=== PATIENT | male | born 1945 | race Caucasian/White ===

== ENCOUNTER 2024-07-08 13:29 | Emergency (ER) | payer MEDICARE, SELFPAY ==
[2024-07-08 13:31] VITALS: BP 131/87
[2024-07-08 15:50] LABS: % Basophils 0.6 % (0-2); % Eosinophils 1.5 % (0-6); % Immature Granulocytes 0.4 % (0-0.5); % Lymphocytes 12.2 % (20.5-51.1); % Monocytes 5.5 % (1.7-9.3); % Neutrophils 79.8 % (42.2-75.2); Absolute Eosinophils 0.1 10^3/uL (0-0.7); Absolute Lymphocytes 0.8 10^3/uL (1.2-3.4); Absolute Monocytes 0.4 10^3/uL (0.1-0.6); Absolute Neutrophils 5.3 10^3/uL (1.4-6.5); Hematocrit 34.7 % (39.0-52.0); Hemoglobin 12.4 g/dL (13.0-18.0); Mean Corp Hgb Conc. 35.7 g/dL (33.0-37.0); Mean Corpuscular Hgb 30.8 pg (27.0-31.0); Mean Corpuscular Volume 86.1 fL (80.0-94.0); Mean Platelet Volume 9.7 fL (7.4-10.4); Nucleated Red Blood Cells % 0 % (-); Platelet Count 153 10^3/uL (130-400); Red Blood Cell Count 4.03 10^6/uL (4.70-6.10); Red Cell Dist. Width 13.3 % (11.5-14.5); White Blood Cell Count 6.7 10^3/uL (4.8-10.8)
--- NOTE | 2024-07-08 15:51 | ED.GENMED ---
History of Present Illness
General
Chief Complaint: Swelling
Source: patient and family
Time Seen by Provider: 07/08/24 15:10
History of Present Illness
History of Present Illness:
78-year-old male with past medical history of atrial fibrillation, hypertension, hyperlipidemia, previous NIDDM (daughter states that patient was taken off his metformin about a year ago after he had a good hemoglobin A1c) presenting to the
emergency department for evaluation of atraumatic bruising to the right great toe that this started to noticed this past Tuesday, gradually bigger in size today which is what prompted visit. Patient notes no pain, numbness, paresthesia. Denies any
other areas of ecchymosis, melena or hematochezia. No history of diabetic neuropathy. No other concerns presently.
Past History
Past History
ED Past Medical History: Arrthythmia (Atrial fib), Cancer (Prostate CA), CVA (X 4), HTN, Hypercholesterolemia, NIDDM and Other ( basal ganglia stroke, UTI)
ED Past Surgical History: Tonsilectomy
Social History
Tobacco: Non-smoker
Alcohol: None
Drug: None
Personal:
Living: alone (has a healthcare manager)
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
Family History
Family History: Other (Noncontributory)
Review of Systems
Review of Systems
All Other Systems: ROS reviewed and negative except as documented in HPI and ROS
Phy Exam
Physical Exam
Physical Exam:
GENERAL: Alert , in no apparent distress
EYE: conjunctiva clear
NECK: Supple,
ENT: o/p clr, mmm. no petechiae
CARDIAC: Regular rate and rhythm
LUNGS: Clear breath sounds bilaterally, no acute respiratory distress, no wheezes/rales/rhonchi
NEUROLOGICAL: Alert and oriented
SKIN: Warm and dry, ecchymosis overlying dorsum of great toe without any pain to palpation. no breaks in skin
MUSCULOSKELETAL: well perfused. Easily palpable pedal and tibial pulses bilateral
PSYCH: Normal and appropriate interaction.
Scores
Heart Failure Risk
Heart Failure Risk Score: Not Applicable
Heart Score for Chest Pain Patients
STEMI patient?: Not applicable
Withdrawal Assessment of Alcohol
Withdrawal Assessment Completed?: Not applicable
Course
Orders/Labs/Results
Orders:
Orders
07/08/24 15:20
CR Foot - Right Min 3 Views Urgent
Comment:
Reason For Exam: great toe ecchymosis
07/08/24 15:43
Basic Metabolic Panel Urgent
Complete Blood Count/With Diff Urgent
PTT Urgent
Prothrombin Time Urgent
Abnormal Lab Results
07/08/24
15:43
RBC 4.03 L 10^6/uL
(4.70-6.10)
Hgb 12.4 L g/dL
(13.0-18.0)
Hct 34.7 L %
(39.0-52.0)
Absolute Lymphs (auto) 0.8 L 10^3/uL
(1.2-3.4)
Neutrophils % 79.8 H %
(42.2-75.2)
Lymphocytes % 12.2 L %
(20.5-51.1)
PT 14.7 H Sec
(11.4-14.6)
APTT 38.0 H Sec
(23.4-35.0)
Sodium 148 H mmol/L
(135-145)
BUN 28 H mg/dl
(9-20)
Creatinine 1.5 H mg/dL
(0.7-1.3)
Glucose 170 H mg/dl
(70-99)
07/08/24 15:43
07/08/24 15:43
Vital Signs
Initial and Last Documented VS:
Initial Vital Signs
Temp Pulse Resp BP Pulse Ox
99.9 F 56 16 131/87 94
07/08/24 13:31 07/08/24 13:31 07/08/24 13:31 07/08/24 13:31 07/08/24 13:31
Last Documented Vital Signs
Temp Pulse Resp BP Pulse Ox
99.9 F 56 16 131/87 97
07/08/24 13:31 07/08/24 13:31 07/08/24 13:31 07/08/24 13:31 07/08/24 15:45
MDM/Problems Addressed
Differential Diagnosis Includes:
fracture, sprain, contusion, less concern for diabetic foot wound, osteo
MDM/Problems Addressed:
78-year-old male presenting to the emergency department for atraumatic right great toe ecchymosis. Patient notes he cannot think of any events that would have caused the bruising. No fevers or infectious symptoms. No breaks in the skin. No other
areas of bruising. Patient is hemodynamically stable and in no acute distress. Labs and x-ray ordered. Disposition pending.
*Radiology
Radiology exam reviewed: preliminary read by ED provider (degenerative changes, no fx)
*Pulse Oximetry
Patient hypoxic: no
*Critical Care Note
Total Time (30-74mins, 75-104mins- exclusive of procedures): Not Applicable
Patient Management
Escalation/DeEscalation of care consider admission/obs:
Patient's workup is largely unremarkable. He does have known mild chronic kidney disease which is at baseline. Platelets are within normal limits. Hemoglobin is largely unremarkable. Patient is stable for discharge home and outpatient management
with primary care provider. Aware of return precautions to the ER.
ED Attending Note
-
Portions of this chart may have been created with voice recognition software.� Occasional wrong word or��sound alike� substitutions may have occurred due to the inherent limitations of voice recognition software.
Discharge Plan
Departure
Patient Disposition: Home (Routine Discharge)
Date of Disposition: 07/08/24
Time of Disposition: 16:55
Patient with high blood pressure during this ER visit?: No
Discharge Problem:
Ecchymosis, CKD (chronic kidney disease)
Instructions: Taking care of bruises
Prescriptions:
No Action
cefdinir 300 mg capsule
300 mg PO BID Qty: 14 0RF
Referrals:
Yessenia Hernandez MD [Family Provider] -
Interventions
Interventions:
*Risk Screen - Suicide Last Done: 07/08/24 13:31
*General Assessment Last Done: 07/08/24 13:31
*ED COVID-19 Vaccine History Last Done: 07/08/24 13:31
Discharge Date and Time
Print Language: POLISH
[2024-07-08 16:00] VITALS: BP 173/90
[2024-07-08 16:03] LABS: INR 1.17; PT 14.7 Sec (11.4-14.6)
[2024-07-08 16:10] LABS: Blood Urea Nitrogen 28 mg/dl (9-20); Calcium 9.8 mg/dl (8.4-10.2); Carbon Dioxide 29 mmol/L (22-30); Chloride 106 mmol/L (98-107); Glucose 170 mg/dl (70-99); Sodium 148 mmol/L (135-145); eGFR 47.06
[2024-07-08 17:29] VITALS: BP 128/65
== END 2024-07-08 17:30 | disposition home or self-care (01) ==
LOC: EMR 13:29
PROVIDERS: Physician Assistant Medical; EMERGENCY PHYSICIAN Emergency Medicine; FAMILY PHYSICIAN Internal Medicine
DX: R58 Hemorrhage, not elsewhere classified (principal); M79.89 Other specified soft tissue disorders; I12.9 Hypertensive chronic kidney disease with stage 1 through stage 4 chronic kidney disease, or unspecified chronic kidney disease; N18.9 Chronic kidney disease, unspecified; I48.91 Unspecified atrial fibrillation; E78.00 Pure hypercholesterolemia, unspecified; E11.22 Type 2 diabetes mellitus with diabetic chronic kidney disease; Z85.46 Personal history of malignant neoplasm of prostate; Z86.73 Personal history of transient ischemic attack (TIA), and cerebral infarction without residual deficits; Z87.440 Personal history of urinary (tract) infections
CPT/HCPCS: 99283; 73630; 80048; 85025; 85610; 85730